=== PATIENT | male | born 1965 | race Two or more races ===

== ENCOUNTER 2022-12-21 08:44 | Inpatient (IN) | payer OTHER ==
[~2022-12-21] VITALS: Ht 182.9 cm; Wt 95.3 kg
--- NOTE | 2022-12-21 08:57 | NUR ---
SE RECIBE PTE ALERTA Y ORIENTADO PTE REFIERE DOLOR EN EL AREA PELVICA Y CONTINUA PARA EL AREA DE LOS TESTICULOS, PTE FUE DIAGNOSTICARON DIVERTICULITIS CRONICA, SE ASHLEY VITALES Y SE JONNATHAN EN OBSERVACION.
--- NOTE | 2022-12-21 10:27 | NUR ---
SE ORIENTA PTE SOBRE EL TRATAMIENTO ORDENADO POR LA DRA HSU PTE ALERTA Y ORIENTADO POR 3 SE REALIZAN MUESTRAS DE LABORATORIO Y SE ADMINISTRAN MEDICAMENTO COSMO ORDENADO PTE EN EN ESPERA DE CT
== END 2022-12-28 16:59 | disposition home or self-care (01) | DRG 392 ==
LOC: ER 08:44 → SEC-K 16:20 → SURH 16:20
PROVIDERS: ADMIT Colon & Rectal Surgery; ATTEND Colon & Rectal Surgery
PROC: 02HV33Z Insertion of Infusion Device into Superior Vena Cava, Percutaneous Approach (ICD-10-PCS; 2022-12-25)
PROC: BW21YZZ Computerized Tomography (CT Scan) of Abdomen and Pelvis using Other Contrast (ICD-10-PCS; principal; 2022-12-26)
DX: K57.20 Diverticulitis of large intestine with perforation and abscess without bleeding (principal); N39.0 Urinary tract infection, site not specified; B96.29 Other Escherichia coli [E. coli] as the cause of diseases classified elsewhere; I10 Essential (primary) hypertension; Z20.822 Contact with and (suspected) exposure to COVID-19; E11.9 Type 2 diabetes mellitus without complications; Z79.4 Long term (current) use of insulin

== ENCOUNTER 2023-01-17 07:21 | Inpatient (IN) | payer OTHER ==
[~2023-01-17] VITALS: Ht 182.9 cm; Wt 0.5 kg
[2023-01-17] MEDS ORDERED: COZAAR25 MG PO (07:39)
[2023-01-18] MEDS ORDERED: FAMOTIDINE20 MG (11:16)
[2023-01-18] MEDS ORDERED: OMEPRAZOLE20 MG (11:16)
[2023-01-18] MEDS ORDERED: FOLIC ACID1 MG (11:16)
== END 2023-01-30 14:08 | disposition home or self-care (01) | DRG 330 ==
LOC: ER 07:21 → SURH 10:46
PROVIDERS: Urology; ADMIT Colon & Rectal Surgery; ATTEND Colon & Rectal Surgery
PROC: 02HV33Z Insertion of Infusion Device into Superior Vena Cava, Percutaneous Approach (ICD-10-PCS; 2023-01-17)
PROC: 0DJD8ZZ Inspection of Lower Intestinal Tract, Via Natural or Artificial Opening Endoscopic (ICD-10-PCS; 2023-01-27)
PROC: 0T9B80Z Drainage of Bladder with Drainage Device, Via Natural or Artificial Opening Endoscopic (ICD-10-PCS; 2023-01-27)
PROC: 0TBB4ZZ Excision of Bladder, Percutaneous Endoscopic Approach (ICD-10-PCS; 2023-01-27)
PROC: 0DTN4ZZ Resection of Sigmoid Colon, Percutaneous Endoscopic Approach (ICD-10-PCS; principal; 2023-01-27 07:15)
PROC: 0DBP4ZZ Excision of Rectum, Percutaneous Endoscopic Approach (ICD-10-PCS; 2023-01-27 07:15)
DX: K57.20 Diverticulitis of large intestine with perforation and abscess without bleeding (principal); N32.1 Vesicointestinal fistula; N39.0 Urinary tract infection, site not specified; Z16.12 Extended spectrum beta lactamase (ESBL) resistance; I10 Essential (primary) hypertension; B96.20 Unspecified Escherichia coli [E. coli] as the cause of diseases classified elsewhere; Z20.822 Contact with and (suspected) exposure to COVID-19